=== PATIENT | male | born 1980 ===

== ENCOUNTER 2018-08-20 06:22 | Emergency (ER) | payer MEDICAID, OTHER ==
[~2018-08-20] VITALS: Ht 188 cm; Wt 105.1 kg
[2018-08-20] MEDS ORDERED: LORazepam 1MG TABLET PO ONE (07:00)
[2018-08-20] MEDS ORDERED: LORazepam 1MG TABLET ONE (07:11)
[2018-08-20 07:40] LABS: BASOPHILS # (AUTO) 0.03 x10^3/uL (0-0.1); BASOPHILS % (AUTO) 1 % (0-1); EOSINOPHILS # (AUTO) 0.05 x10^3/uL (0-0.4); EOSINOPHILS % (AUTO) 1 % (1-7); LYMPHOCYTES # (AUTO) 1.83 x10^3/uL (1-3.4); LYMPHOCYTES % (AUTO) 41 % (22-44); MD NO; MEAN CORPUSCULAR HGB CONC 34.4 g/dL (33.2-36.2); MEAN CORPUSCULAR VOLUME 90.1 fL (81-97); MEAN PLATELET VOLUME 7.7 fL (7.4-10.4); MONOCYTES # (AUTO) 0.42 x10^3/uL (0.2-0.8); MONOCYTES % (AUTO) 10 % (2-9); NEUTROPHILS # (AUTO) 2.12 x10^3/uL (1.8-6.8); NEUTROPHILS % (AUTO) 48 % (42-75); PLATELET COUNT 292 x10^3/uL (130-400); RED BLOOD COUNT 4.77 x10^6/uL (4.38-5.82); RED CELL DISTRIBUTION WIDTH 12.8 % (9.4-14.8)
[2018-08-20 07:52] LABS: ALANINE AMINOTRANSFERASE 122 U/L (12-78); ALBUMIN 4.4 g/dL (3.4-5.0); ANION GAP 11 mmol/L (5-15); CALCIUM 8.7 mg/dL (8.5-10.1); CHLORIDE 107 mmol/L (98-107); CREATININE 0.82 mg/dL (0.7-1.3)
[2018-08-20 07:56] LABS: ALKALINE PHOSPHATASE 64 U/L (45-117); BILIRUBIN,TOTAL 0.4 mg/dL (0.2-1.0); TOTAL PROTEIN 8.4 g/dL (6.4-8.2); TROPONIN I < 0.015 ng/mL (0.000-0.045)
[2018-08-20 09:24] VITALS: BP 140/86
== END 2018-08-20 09:26 | disposition home or self-care (01) ==
LOC: ED 09:20
DX: R07.89 Other chest pain (principal); E78.00 Pure hypercholesterolemia, unspecified; F41.1 Generalized anxiety disorder
CPT/HCPCS: 36415; 80053; 84484; 85025; 93005; 99285

== ENCOUNTER 2019-11-20 02:58 | Emergency (ER) | payer MEDICAID, OTHER ==
[~2019-11-20] VITALS: Ht 188 cm; Wt 110.2 kg
[2019-11-20 03:00] VITALS: BP 143/91
--- NOTE | 2019-11-20 03:09 | NUR ---
PT AMBULATES FROM TRIAGE TO ROOM WITH STEADY GAIT.
--- NOTE | 2019-11-20 03:16 | NUR ---
PT REFUSING LAB WORK AND CHEST XRAY. PT STATING "I FEEL BETTER AFTER THE ATIVAN"
--- NOTE | 2019-11-20 03:33 | NUR ---
PT D/C WITH D/C SUMMARY. ALL QUESTIONS ANSWERED. PT AMBULATES TO REGISTRATION DESK WITH STEADY GAIT FOR D/C HOME. PT DENIES ANY OTHER NEEDS PERTAINING TO THIS VISIT AND STATES THAT HE FEELS LIKE HIS ANIXETY IS WELL CONTROLLED NOW.
== END 2019-11-20 03:36 | disposition home or self-care (01) ==
LOC: ED 03:25
DX: R07.89 Other chest pain (principal); F41.1 Generalized anxiety disorder
CPT/HCPCS: 93005; 99283

== ENCOUNTER 2021-02-23 00:10 | Emergency (ER) | payer MEDICAID ==
[~2021-02-23] VITALS: Ht 188 cm; Wt 110.0 kg
--- NOTE | 2021-02-23 00:34 | NUR ---
ERP AT BEDSIDE FOR EXAM
[2021-02-23 00:46] VITALS: BP 110/62
[2021-02-23 01:15] LABS: BASOPHILS % (AUTO) 1 % (0-1); EOSINOPHILS % (AUTO) 3 % (1-7); LYMPHOCYTES % (AUTO) 45 % (22-44); MEAN CORPUSCULAR HEMOGLOBIN 30.7 pg (27.5-34.5); MEAN CORPUSCULAR HGB CONC 34.4 g/dL (33.2-36.2); MEAN PLATELET VOLUME 7.5 fL (7.4-10.4); MONOCYTES % (AUTO) 10 % (2-9); NEUTROPHILS % (AUTO) 41 % (42-75); PLATELET COUNT 289 x10^3/uL (130-400); RED BLOOD COUNT 4.53 x10^6/uL (4.38-5.82); RED CELL DISTRIBUTION WIDTH 13.1 % (9.4-14.8)
[2021-02-23 01:23] LABS: ALANINE AMINOTRANSFERASE 49 U/L (12-78); ALBUMIN 4.2 g/dL (3.4-5.0); ANION GAP 4 mmol/L (5-15); CALCIUM 8.6 mg/dL (8.5-10.1); CHLORIDE 108 mmol/L (98-107); CREATININE 0.89 mg/dL (0.7-1.3); MD NO
[2021-02-23 01:25] LABS: ALKALINE PHOSPHATASE 62 U/L (45-117); BILIRUBIN,TOTAL 0.2 mg/dL (0.2-1.0); TOTAL PROTEIN 7.5 g/dL (6.4-8.2)
[2021-02-23] MEDS ORDERED: DEXAMETHASONE 4 MG TABLET ONE (01:53)
[2021-02-23] MEDS ORDERED: DEXAMETHASONE 4 MG/ML, 1ML PO ONE (02:00)
--- NOTE | 2021-02-23 02:00 | NUR ---
PT RESTING COMFORTABLY, AND PO MEDICATIONS GIVEN PER MD ORDER ON EMAR. F/U AND D/C INSTRUCTIONS GIVEN TO PT AND HE V/U. PT AMBULATORY AND IN NO DISTRESS AT THIS TIME.
== END 2021-02-23 02:02 | disposition home or self-care (01) ==
LOC: ED 01:56
DX: K64.8 Other hemorrhoids (principal); R20.2 Paresthesia of skin; F41.1 Generalized anxiety disorder; R94.31 Abnormal electrocardiogram [ECG] [EKG]
CPT/HCPCS: 36415; 73030; 73080; 80053; 85025; 93005; 99285; J1100